=== PATIENT | male | born 2000 | race Two or more races ===

== ENCOUNTER 2021-03-18 18:34 | Emergency (ER) | payer SELFPAY ==
[~2021-03-18] VITALS: Ht 185.4 cm; Wt 80.0 kg
[2021-03-18 19:01] VITALS: BP 114/61
== END 2021-03-18 20:31 | disposition left against medical advice (07) ==
LOC: EMS 18:39
DX: M79.641 Pain in right hand (principal); Z53.21 Procedure and treatment not carried out due to patient leaving prior to being seen by health care provider